=== PATIENT | male | born 1955 | race Caucasian/White ===

== ENCOUNTER → 2020-06-21 | Outpatient (CLI) | payer MEDICARE ==
[~2020-06-21] MED LIST: ATORVASTATIN CA40 MG PO; CIPROFLOXACIN500 M1 PO; FLOMAX0.4 MG PO; LISINOPRIL20 MG PO; METOPROLOL TAR100 MG PO; ST. JOSEPH ASPI81 MG PO
== END ==
LOC: EXRD 14:56
DX: M25.511 Pain in right shoulder (principal)
CPT/HCPCS: 73030; 87086

== ENCOUNTER → 2020-10-05 | Outpatient (CLI) | payer MEDICARE | LOC: CT 12:07 | DX: R31.9 Hematuria, unspecified (principal); N40.0 Benign prostatic hyperplasia without lower urinary tract symptoms | CPT/HCPCS: 36415; 82565; 84520; Q9963; Q9967 ==

== ENCOUNTER → 2020-10-15 | Day surgery (SDC) | payer MEDICARE ==
[~2020-10-15] VITALS: Ht 172.7 cm; Wt 86.2 kg
== END | disposition home or self-care (01) ==
LOC: OR 12:34
DX: C61 Malignant neoplasm of prostate (principal); R31.9 Hematuria, unspecified; I10 Essential (primary) hypertension; Z79.899 Other long term (current) drug therapy; Z88.0 Allergy status to penicillin; Z79.82 Long term (current) use of aspirin; Z95.1 Presence of aortocoronary bypass graft; F17.210 Nicotine dependence, cigarettes, uncomplicated; Z82.49 Family history of ischemic heart disease and other diseases of the circulatory system
CPT/HCPCS: J7040; J7120

== ENCOUNTER → 2021-03-05 | Day surgery (SDC) | payer MEDICARE ==
[~2021-03-05] MED LIST changes: +HYDROCHLOROTHIA25 MG PO; +MELATONIN5 M2 PO; +VITAMIN D3125 MCG PO
== END | disposition home or self-care (01) ==
LOC: OR 06:08
DX: K63.5 Polyp of colon (principal); K52.9 Noninfective gastroenteritis and colitis, unspecified; E66.3 Overweight; I10 Essential (primary) hypertension; Z68.28 Body mass index [BMI] 28.0-28.9, adult; Z79.82 Long term (current) use of aspirin; Z79.899 Other long term (current) drug therapy; Z88.0 Allergy status to penicillin; Z20.822 Contact with and (suspected) exposure to COVID-19; Z85.46 Personal history of malignant neoplasm of prostate
CPT/HCPCS: J2704; J7040

== ENCOUNTER 2021-06-14 05:31 | Emergency (ER) | payer MEDICARE ==
[2021-06-14 06:33] LABS: RED BLOOD COUNT 4.43 M/UL (4.20-5.50); WHITE BLOOD COUNT 6.2 K/UL (4.5-11.0)
[2021-06-14] MEDS ORDERED: OMNICEF 300 MG300 MG PO (10:12)
== END 2021-06-14 12:05 | disposition home or self-care (01) ==
LOC: ER1 05:31
PROVIDERS: Preventive Medicine Occupational Medicine
DX: N42.1 Congestion and hemorrhage of prostate (principal); N13.9 Obstructive and reflux uropathy, unspecified; N17.9 Acute kidney failure, unspecified
CPT/HCPCS: 80053; 81001; 85025; 85652; 86140; 87086; 93005; 96374; 96375; 96376; 99284; J0696; J1170; J2405

== ENCOUNTER 2021-06-19 16:13 | Observation (INO) | payer MEDICARE, MEDICAID ==
[~2021-06-19] VITALS: Ht 172.7 cm; Wt 83.9 kg
[~2021-06-19 16:13] MED LIST changes: +OMNICEF 300 MG300 MG PO; -VITAMIN D3125 MCG PO
[2021-06-19 17:14] LABS: HEMOGLOBIN 14.2 gm/dl (14.0-17.5); RED BLOOD COUNT 4.53 M/UL (4.20-5.50); WHITE BLOOD COUNT 7.9 K/UL (4.5-11.0)
[2021-06-19 17:40] LABS: BUN/CREATININE RATIO 15 (0-10)
[2021-06-20 04:41] LABS: RED BLOOD COUNT 4.22 M/UL (4.20-5.50); WHITE BLOOD COUNT 7.8 K/UL (4.5-11.0)
[2021-06-20 05:12] LABS: BUN/CREATININE RATIO 16 (0-10)
[2021-06-20] MEDS ORDERED: VITAMIN D3125 MCG PO (07:17)
--- NOTE | 2021-06-20 16:57 | NUR ---
DR. DYE SPOKE WITH MANUEL QIU'Janusz MELCHOR ABOUT PATIENT'S BASELINE. PER DR. DYE FAMILY IS TO VISIT TOMORROW AFTERNOON TO HELP ESTABLISH BASELINE AND HELP WITH FEEDING PATIENT. MS. VO (NIECE) SAID SHE WOULD BRING FOOD FOR PATIENT.
[2021-06-21 03:55] LABS: HEMOGLOBIN 13.3 gm/dl (14.0-17.5); RED BLOOD COUNT 4.35 M/UL (4.20-5.50); WHITE BLOOD COUNT 7.5 K/UL (4.5-11.0)
[2021-06-21 04:31] LABS: BUN/CREATININE RATIO 17 (0-10)
[2021-06-21] MEDS ORDERED: LEVOFLOXACIN750 MG PO (10:04)
== END 2021-06-21 15:35 | disposition home or self-care (01) ==
LOC: ER1 16:13 → CDU 20:12 → 3 EAST 20:12 → MED SURG 4 06-20 16:38
PROVIDERS: Internal Medicine; Physician Assistant; Physician Assistant Medical; ADMIT Internal Medicine
DX: N39.0 Urinary tract infection, site not specified (principal); U07.1 COVID-19; I25.10 Atherosclerotic heart disease of native coronary artery without angina pectoris; C61 Malignant neoplasm of prostate; N40.0 Benign prostatic hyperplasia without lower urinary tract symptoms; E87.6 Hypokalemia; I10 Essential (primary) hypertension; E78.5 Hyperlipidemia, unspecified; K52.9 Noninfective gastroenteritis and colitis, unspecified; F17.210 Nicotine dependence, cigarettes, uncomplicated; Z79.82 Long term (current) use of aspirin; Z79.899 Other long term (current) drug therapy; Z88.0 Allergy status to penicillin; Z88.8 Allergy status to other drugs, medicaments and biological substances; Z95.1 Presence of aortocoronary bypass graft
CPT/HCPCS: 36415; 71045; 80048; 80053; 81001; 82728; 83605; 83690; 84132; 85025; 85027; 86140; 87040; 87086; 93005; 96374; 99285; G0378; J1335; J1650; J1940; J3480; U0002

== ENCOUNTER → 2021-08-20 | Outpatient (CLI) | payer MEDICARE ==
[~2021-08-20] MED LIST changes: +LEVOFLOXACIN750 MG PO; +VITAMIN D3125 MCG PO
== END ==
LOC: MO 13:43
DX: C61 Malignant neoplasm of prostate (principal)
CPT/HCPCS: 84153

== ENCOUNTER → 2021-10-16 | Outpatient (CLI) | payer MEDICARE | LOC: KOH-I 13:51 | DX: F17.210 Nicotine dependence, cigarettes, uncomplicated (principal) | CPT/HCPCS: 71271 ==

== ENCOUNTER → 2021-12-25 | Outpatient (CLI) | payer MEDICARE | LOC: MO 12:07 | DX: C61 Malignant neoplasm of prostate (principal) | CPT/HCPCS: 84153 ==